=== PATIENT | male | born 1960 | race Caucasian/White ===

== ENCOUNTER → 2016-10-30 | Outpatient (CLI) | payer MEDICARE, BC ==
[~2016-10-30] MED LIST: ASA CHILDREN'S81 MG PO; ASPIRIN325 MG PO; AUGMENTIN 500500 MG PO; AUGMENTIN875 MG PO; B COMPLEX # 11 EACH PO; B-12500 MCG PO; CALCIUM ACETAT667 MG PO; CARVEDILOL25 MG PO; CELEXA40 MG PO; CLARITIN10 M2 PO; COREG DPS3.125 MG PO; COREG6.25 MG PO; CUBICIN; DAILY MULTIPLE1 EAC1 PO; DESYREL-DPS50 MG PO; DILAUDID2 MG PO; DILAUDID4 MG PO; EXALGO8 MG PO; FLUNISOLIDE NS; GENTAMICIN 0.1% TP; HUMALOG SQ; HUMALOG100 UNIT/1 SQ; HUMALOG100 UNIT/3 SQ; HYDRALAZINE PO; HYTRIN1 MG PO; INSULIN GLARGINE SQ; IRON160 MG PO; LASIX40 MG PO; LEVAQUIN500 MG PO; LEVEMIR SQ; LEVEMIR100 UNIT/1 SQ; LEXAPRO20 MG PO; LIPITOR DPS40 MG PO; LISINOPRIL10 MG PO; LISINOPRIL20 MG PO; LYRICA50 MG PO; MIRALAX DPS17 GM PO; MIRALAX17 GM PO; MYCOSTATIN500000 UNI PO; NAPROSYN DPS250 MG PO; NORVASC DPS10 MG PO; PANTOPRAZOLE PO; PAXIL40 MG PO; PHOS-LO667 MG PO; PRILOSEC DPS20 MG PO; PRINIVIL5 MG PO; RENVELA800 MG PO; SIMVASTATIN40 MG PO; SURFAK DPS240 MG PO; THERA1 EACH PO; VITAMIN B-2100 MG PO; VITAMIN B1100 MG PO; VITAMIN D-32000 UNI1 PO; WELLBUTRIN75 MG PO; ZESTRIL DPS5 MG PO; [UNRECOGNIZED DRUG - OTHER]; [UNRECOGNIZED DRUG - OTHER] PO
== END | disposition home or self-care (01) ==
LOC: PTH.S 10-05 11:00
DX: D84.9 Immunodeficiency, unspecified (principal); Z94.83 Pancreas transplant status; Z94.0 Kidney transplant status; Z79.899 Other long term (current) drug therapy

== ENCOUNTER → 2016-11-10 | Outpatient (CLI) | payer MEDICARE, BC | END | disposition home or self-care (01) | LOC: PTH.S 11-03 15:45 | DX: D84.9 Immunodeficiency, unspecified (principal); Z94.83 Pancreas transplant status; Z94.0 Kidney transplant status; Z79.899 Other long term (current) drug therapy ==